=== PATIENT | female | born 1950 | race Caucasian/White ===

== ENCOUNTER 2016-10-29 10:47 | Emergency (ER) | payer OTHER ==
--- NOTE | 2016-10-29 14:51 | ER ---
ADMIT: 10/29/2016 RM/LOC: ER [facility] MR#: [id number] [id number] USMAN RUIZ [address] [place] [address] Emergency Room Report SEX: F AGE: 66 : 1950 DATE: 10/29/2016 The patient is a 66-year-old female with past medical history of chronic back pain. Pain here because of the right hand laceration before coming to hospital. The patient states she was pulling on a clean pipe when she cut the right hand in the place of the dorsum of the right hand in the first interdigital web extending from the base of the thumb towards the dorsum of the palm. The patient denies any head trauma or pain in other parts of the body. The patient states she fell slightly to the back but denies hitting the head or other parts of the body to the ground. PHYSICAL EXAMINATION: The patient is in mild distress because of the pain, of the laceration. Vitals are stable. Head and neck, chest, abdomen, and back; there is no tenderness or signs of trauma. In the right hand, there is a 4 cm laceration, which continues through the skin and subcutaneous tissue but does not involve tendons and it extends from the base of the thumb towards the dorsum of the right hand without any active bleeding. Normal neural exam, normal sensory, normal capillary filling. No tendon injury. The wound was anesthetized with lidocaine 1% without epinephrine. The wound was irrigated copious saline, there were no foreign bodies, there were no tendon injuries. PROGRESS NOTE: Wound was closed in 2 layers with Vicryl 4-0 and Prolene 3-0 successfully. The patient received tetanus shot in the ER. The patient told that the sutures need to be taken out in 10 days, wound was dressed with bacitracin and dressing and the patient was discharged home with wound care handout. Mateusz Cantrell MD/ abdias JOB #: [id number] CC: Mateusz Cantrell MD, Attending Physician UNKNOWN, Family Physician
== END 2016-10-29 11:36 | disposition home or self-care (01) ==
LOC: ER 10:47
PROC: 0HQFXZZ Repair Right Hand Skin, External Approach (ICD-10-PCS; principal; 2016-10-29)
DX: S61.411A Laceration without foreign body of right hand, initial encounter (principal); Z23 Encounter for immunization; W19.XXXA Unspecified fall, initial encounter; Y92.009 Unspecified place in unspecified non-institutional (private) residence as the place of occurrence of the external cause